=== PATIENT | female | born 1980 | race Caucasian/White ===

== ENCOUNTER 2022-10-16 00:38 | Emergency (ER) | payer MEDICAID ==
[~2022-10-16] VITALS: Ht 170.2 cm; Wt 65.8 kg
[2022-10-16 00:40] VITALS: BP_SYST 110; PULSE 81; RESP 16; TEMP 97.3; O2SAT 100
[2022-10-16] MEDS ORDERED: AMOX-423 PO (01:12)
[2022-10-16] MEDS ORDERED: NAPR-690 PO (01:12)
[2022-10-16] MEDS ORDERED: cefTRIAXone 1 GM in LIDOCAINE 1%, 20 ML MDV 2.1 ML IM ONE (01:30)
[2022-10-16] MEDS ORDERED: DIPHTH,PERTUSS(ACELL),TET VAC 0.5 ML VIAL (Tdap) I.M. ONE (01:30)
[2022-10-16 02:51] VITALS: BP_SYST 122; PULSE 80; RESP 16; O2SAT 99
== END 2022-10-16 02:30 | disposition home or self-care (01) ==
LOC: SED 00:38
DX: S61.011A Laceration without foreign body of right thumb without damage to nail, initial encounter (principal); Z88.2 Allergy status to sulfonamides; Z88.5 Allergy status to narcotic agent; Z79.899 Other long term (current) drug therapy; W54.0XXA Bitten by dog, initial encounter; Y93.89 Activity, other specified; Y92.89 Other specified places as the place of occurrence of the external cause; Y99.8 Other external cause status
CPT/HCPCS: 99284; 90715; 96372; 90471; J0696; J2001; J7030